=== PATIENT | female | born 1935 | race Caucasian/White ===

== ENCOUNTER 2016-11-02 13:39 | Emergency (ER) | payer MEDICARE, MEDICAID ==
--- NOTE | 2016-11-02 15:10 | ER Document Report ---
ED Respiratory Problem - General Chief Complaint: Congestion Stated Complaint: COUGH Time Seen by Provider: 11/02/16 13:43 Information source: Patient, Relative Notes: Patient is an 80-year-old female with past medical history as recorded with baseline dementia, nonambulatory at baseline, who presents today with 2-3 days of nasal congestion, coughing, and according to staff "losing her voice". I called and spoke directly to the patient's provider, Sonia at the facility, who states the patient has had no fevers, vomiting, diarrhea, change in mental status, or complaints of chest pain. Family was concerned that there was a report that the patient may have had some chest pain with the cough. TRAVEL OUTSIDE OF THE [place] IN LAST 30 DAYS: No - HPI Patient complains to provider of: Cough Onset: Other - See above Duration: Continuous Initiating Event: Other - See above Quality of pain: No pain - According to nursing care staff Severity: Mild Pain Level: Denies Short of Breath: Mild Cough: Productive - Phlegm that is white Sputum amount: Small Sputum color: White Associated symptoms: Other - See above - Related Data Allergies/Adverse Reactions: No Known Allergies Allergy (Verified 04/21/16 13:19) Past Medical History - General Information source: Patient - Social History Smoking Status: Unknown if Ever Smoked Cigarette use (# per day): No Chew tobacco use (# tins/day): No Smoking Education Provided: No Frequency of alcohol use: None Drug Abuse: None Family History: Reviewed & Not Pertinent Patient has suicidal ideation: No Patient has homicidal ideation: No - Past Medical History Cardiac Medical History: Reports: Hx Hypertension Musculoskeltal Medical History: Reports Hx Arthritis, Reports Hx Musculoskeletal Trauma - Fx L. HIP, ORIF Psychiatric Medical History: Reports: Hx Dementia Past Surgical History: Reports: Hx Cholecystectomy, Hx Hysterectomy, Hx Orthopedic Surgery - Immunizations Immunizations up to date: Yes Hx Diphtheria, Pertussis, Tetanus Vaccination: - Unknown Review of Systems - Review of Systems Constitutional: denies: Fever EENT: Nose congestion, Nose discharge. denies: Eye discharge Cardiovascular: denies: Chest pain Respiratory: Cough, Short of breath Gastrointestinal: denies: Diarrhea, Nausea, Vomiting Musculoskeletal: denies: Leg swelling Skin: Other - no hives. denies: Rash Neurological/Psychological: Other - no slurred speech -: Yes All other systems reviewed and negative Physical Exam - Vital signs Vitals: Temp Pulse Resp BP Pulse Ox 97.3 F 78 24 H 140/92 H 96 11/02/16 13:50 11/02/16 13:50 11/02/16 13:50 11/02/16 13:50 11/02/16 13:50 Interpretation: Normal Notes: Reviewed vital signs and nursing note as charted by RN. CONSTITUTIONAL: Alert and and polite. Disoriented to person place and time which is baseline. HEAD: Normocephalic; atraumatic EYES: PERRL ENT: Normal nose; no rhinorrhea; moist mucous membranes; pharynx without lesions noted NECK: Supple without meningismus; no carotid bruits; non-tender; no cervical lymphadenopathy, no masses CARD: Regular rate and rhythm; no murmurs, no clicks, no rubs, no gallops; symmetric distal pulses RESP: Normal chest excursion without splinting or tachypnea; breath sounds clear and equal bilaterally; minimal scattered rhonchi without wheezing or rales present. ABD/GI: Normal bowel sounds; non-distended; soft, non-tender BACK: The back appears normal and is non-tender to palpation EXT: Left BKA. Right leg has MARK hose in place with no obvious edema. SKIN: Normal color for age and race; warm; dry; good turgor; capillary refill < 2 seconds; no acute lesions noted NEURO: Moves all extremities equally; Motor and sensory function intact PSYCH: The patient's mood and manner are appropriate. Grooming and personal hygiene are appropriate. Course - Re-evaluation Re-evalutation: 11/02/16 15:10 Given the history and physical examination with the report from the care facility, I we'll obtain an x-ray of the chest to evaluate for possible pneumonia. I will also order one set of cardiac enzymes and an EKG to rule out any obvious acute cardiac condition. If this workup is unremarkable, patient will be discharged back to the facility with strict return precautions. 11/02/16 15:28 EKG shows a heart of 77, normal sinus rhythm, normal axis, no obvious ST elevation or depression. 11/02/16 16:10 Labs as recorded. No change in exam. Chest x-ray shows normal heart, normal mediastinum, no fractures, normal lung sim, no pneumothorax. Given the above history, physical, laboratory values, an x-ray examination, I believe it is reasonable to discharge the patient home with strict return precautions. - Vital Signs Vital signs: Temp Pulse Resp BP Pulse Ox 97.3 F 78 24 H 140/92 H 96 11/02/16 13:50 11/02/16 13:50 11/02/16 13:50 11/02/16 13:50 11/02/16 13:50 - Laboratory Result Diagrams: 11/02/16 15:15 11/02/16 15:15 Laboratory results interpreted by me: 11/02/16 11/02/16 11/02/16 15:15 15:15 15:15 RBC 3.39 L Hgb 10.7 L Hct 32.3 L RDW 15.1 H Carbon Dioxide 32 H BUN 22 H Est GFR (Non-Af Amer) 54 L NT-Pro-B Natriuret Pep 471 H Discharge - Discharge Clinical Impression: Nasal congestion, Cough Condition: Good Disposition: HOME, SELF-CARE Additional Instructions: Come back immediately with any worsening cough, any fever, chest pain, leg swelling, or any other acute problems. Please make sure that she gets reevaluated by primary doctor in the next 48 hours. Referrals: MARTÍN MICHEL MD [Primary Care Provider] - Follow up as needed
[2016-11-02 15:30] LABS: ABSOLUTE BASOPHILS # (AUTO) 0.1 10^3/uL (0.0-0.2); ABSOLUTE EOSINOPHILS # (AUTO) 0.3 10^3/uL (0.0-0.6); ABSOLUTE LYMPHOCYTES (AUTO) 3.4 10^3/uL (0.5-4.7); ABSOLUTE MONOCYTES (AUTO) 0.6 10^3/uL (0.1-1.4); ABSOLUTE NEUT (AUTO) 5.3 10^3/uL (1.7-8.2); BASOPHILS % (AUTO) 0.9 % (0-2); EOSINOPHILS % (AUTO) 3.5 % (0-6); HEMATOCRIT 32.3 % (36.0-47.0); HEMOGLOBIN 10.7 g/dL (12.0-15.5); HGB HCT DIFFERENCE -0.2; LYMPHOCYTES % (AUTO) 35.1 % (13-45); MEAN CORPUSCULAR HEMOGLOBIN 31.6 pg (27.0-33.4); MEAN CORPUSCULAR HGB CONC 33.2 g/dL (32.0-36.0); MEAN CORPUSCULAR VOLUME 95 fl (80-97); MONOCYTES % (AUTO) 6.5 % (3-13); RED BLOOD COUNT 3.39 10^6/uL (3.72-5.28); RED CELL DISTRIBUTION WIDTH 15.1 % (11.5-14.0); WHITE BLOOD COUNT 9.7 10^3/uL (4.0-10.5)
[2016-11-02 15:49] LABS: ANION GAP 8 (5-19); BLOOD UREA NITROGEN 22 mg/dL (7-20); CALCIUM 9.4 mg/dL (8.4-10.2); CARBON DIOXIDE 32 mmol/L (22-30); CHLORIDE 102 mmol/L (98-107); CREATININE RESULT 0.99 mg/dL (0.52-1.25); GLUCOSE 104 mg/dL (75-110); POTASSIUM 4.7 mmol/L (3.6-5.0); SODIUM 142.3 mmol/L (137-145)
[2016-11-02 16:03] LABS: TROPONIN I < 0.012 ng/mL
[2016-11-02 16:42] VITALS: BP 155/100
--- NOTE | 2016-11-02 23:37 | EKG REPORT ---
SEVERITY:- BORDERLINE ECG - SINUS RHYTHM BORDERLINE PROLONGED QT INTERVAL : Confirmed by: Cyndi Leach 02-Nov-2016 23:37:06
== END 2016-11-02 16:41 | disposition home or self-care (01) ==
LOC: ER 13:39
DX: R05 Cough (principal); R09.81 Nasal congestion; I10 Essential (primary) hypertension; F03.90 Unspecified dementia, unspecified severity, without behavioral disturbance, psychotic disturbance, mood disturbance, and anxiety
CPT/HCPCS: 36415; 71020; 80048; 83880; 84484; 85025; 93005; 93010; 99284

== ENCOUNTER 2017-05-07 09:16 | Emergency (ER) | payer MEDICARE, MEDICAID ==
--- NOTE | 2017-05-07 09:23 | ER Document Report ---
ED General - General Stated Complaint: FALL HEAD PAIN Time Seen by Provider: 05/07/17 09:18 Mode of Arrival: Medic Information source: Patient, Emergency Med Personnel Cannot obtain history due to: Dementia Notes: 81-year-old female history of dementia presents for evaluation after a fall that occurred yesterday at 3 PM. Patient has no complaints, care staff had no specific concerns. Patient was not brought in yesterday for unknown reason. TRAVEL OUTSIDE OF THE [place] IN LAST 30 DAYS: No - HPI Onset: Yesterday Onset/Duration: Sudden Quality of pain: No pain Severity: None Pain Level: Denies Associated symptoms: None Exacerbated by: Denies Relieved by: Denies Similar symptoms previously: Yes Recently seen / treated by doctor: Yes - Related Data Allergies/Adverse Reactions: No Known Allergies Allergy (Verified 04/21/16 13:19) Past Medical History - Social History Smoking Status: Never Smoker Cigarette use (# per day): No Chew tobacco use (# tins/day): No Smoking Education Provided: No Family History: Reviewed & Not Pertinent - Past Medical History Cardiac Medical History: Reports: Hx Hypertension Musculoskeltal Medical History: Reports Hx Arthritis, Reports Hx Musculoskeletal Trauma - Fx L. HIP, ORIF Psychiatric Medical History: Reports: Hx Dementia Past Surgical History: Reports: Hx Cholecystectomy, Hx Hysterectomy, Hx Orthopedic Surgery - Immunizations Immunizations up to date: Yes Hx Diphtheria, Pertussis, Tetanus Vaccination: - Unknown Review of Systems - Review of Systems Notes: PHYSICAL EXAMINATION: GENERAL: Elderly female no acute distress HEAD: Atraumatic, normocephalic. EYES: Pupils equal round and reactive to light, extraocular movements intact, conjunctiva are normal. ENT: Nares patent, oropharynx clear without exudates. Moist mucous membranes. NECK: Normal range of motion, supple without lymphadenopathy LUNGS: Breath sounds clear to auscultation bilaterally and equal. No wheezes rales or rhonchi. HEART: Regular rate and rhythm without murmurs ABDOMEN: Soft, nontender, nondistended abdomen. No guarding, no rebound. No masses appreciated. Female : deferred Musculoskeletal: Normal range of motion, no pitting or edema. No cyanosis. NEUROLOGICAL: Baseline dementia PSYCH: Normal mood, normal affect. SKIN: Warm, Dry, normal turgor, no rashes or lesions noted. -: Yes ROS unobtainable due to patient's medical condition Course - Re-evaluation Re-evalutation: 05/07/17 09:26 On physical examination patient is in no distress at all she is at her baseline mentation. Patient was fully evaluated with nursing staff and no specific abnormalities noted, patient looks well is in no distress, I do not believe imaging is appropriate at this time as she has no abnormality no weakness is moving her extremities with no difficulty and there is no specific documentation of any injury noted by the care facility After performing a Medical Screening Examination, I estimate there is LOW risk for INTRACRANIAL HEMORRHAGE, UNSTABLE SPINE FRACTURE, CENTRAL CORD SYNDROME, CAUDA EQUINA, THORACIC AORTIC DISSECTION, PNEUMOTHORAX, PERFORATED BOWEL, RUPTURED ABDOMINAL AORTIC ANEURYSM, ACUTE TENDON RUPTURE, COMPARTMENT SYNDROME, or OPEN FRACTURE, thus I consider the discharge disposition reasonable. Also, there is no evidence or peritonitis, sepsis, or toxicity. I have reevaluated this patient multiple times and no significant life threatening changes are noted. The EMS staff and I have discussed the diagnosis and risks, and we agree with discharging home to follow-up with their primary doctor with the understanding that symptoms and presentations can change. We also discussed returning to the Emergency Department immediately if new or worsening symptoms occur. We have discussed the symptoms which are most concerning (e.g., bloody stool, fever, changing or worsening pain, vomiting) that necessitate immediate return. Discharge - Discharge Clinical Impression: Fall Qualifiers: Encounter type: initial encounter Qualified Code(s): W19.XXXA - Unspecified fall, initial encounter Dementia Qualifiers: Dementia type: unspecified type Dementia behavioral disturbance: without behavioral disturbance Qualified Code(s): F03.90 - Unspecified dementia without behavioral disturbance Condition: Stable Disposition: HOME, SELF-CARE Additional Instructions: Your examination today noted no acute abnormality return immediately if there are any other concerns
[2017-05-07] MEDS ORDERED: LORAZEPAM 1 MG TABLET PO ONE (09:31)
[2017-05-07 10:32] VITALS: BP 112/72
== END 2017-05-07 10:28 | disposition home or self-care (01) ==
LOC: ER 09:16
DX: Z04.3 Encounter for examination and observation following other accident (principal); W19.XXXA Unspecified fall, initial encounter; F03.90 Unspecified dementia, unspecified severity, without behavioral disturbance, psychotic disturbance, mood disturbance, and anxiety; I10 Essential (primary) hypertension
CPT/HCPCS: 99283; A9270

== ENCOUNTER 2017-05-13 05:12 | Inpatient (IN) | payer MEDICARE, MEDICAID ==
--- NOTE | 2017-05-13 05:27 | ER Document Report ---
ED Medical Screen (RME) - General Stated Complaint: RESPIRATORY DISTRESS Time Seen by Provider: 05/13/17 05:17 Notes: Patient is an 81-year-old female that comes by EMS from the [facility] for chief complaint of fever and congested cough. EMS reports recorded temperature of 102 F [facility] staff earlier today. EMS reports she was initially hypoxic at 86% on room air lying flat, she was given a DuoNeb and Solu-Medrol en route. No smoking history, no COPD history, no cardiac history reported. Only medical history reported as Alzheimer's and hypothyroidism. Patient has DO NOT RESUSCITATE advanced directives paperwork with her tonight. TRAVEL OUTSIDE OF THE [place] IN LAST 30 DAYS: No - Related Data Allergies/Adverse Reactions: No Known Allergies Allergy (Verified 04/21/16 13:19) Past Medical History - Past Medical History Cardiac Medical History: Reports: Hx Hypertension Renal/ Medical History: Denies: Hx Peritoneal Dialysis Musculoskeltal Medical History: Reports Hx Arthritis, Reports Hx Musculoskeletal Trauma - Fx L. HIP, ORIF Psychiatric Medical History: Reports: Hx Dementia Past Surgical History: Reports: Hx Cholecystectomy, Hx Hysterectomy, Hx Orthopedic Surgery - Immunizations Immunizations up to date: Yes Hx Diphtheria, Pertussis, Tetanus Vaccination: - Unknown Physical Exam - General General appearance: Appears well In distress: None - Respiratory Respiratory status: No: Labored Breath sounds: Other - Scattered rhonchi and coarse breath sounds - Skin Skin Color: Flushed Course - Re-evaluation Re-evalutation: Patient flushed, feels very warm, has rhonchi on exam, she is not hypoxic on room air, she has a congested cough. Workup pending.
--- NOTE | 2017-05-13 05:51 | RADIOLOGY REPORT (SQ) ---
EXAM DESCRIPTION: CHEST SINGLE VIEW CLINICAL HISTORY: fever, cough COMPARISON: 11/02/2016 FINDINGS: Single frontal view of the chest. The cardiomediastinal silhouette has normal size and contour. Patchy left basilar airspace opacity. Bilateral perihilar interstitial opacities are unchanged and may be related to pulmonary vascular congestion or chronic interstitial changes. Plate and screw fixation of the left humerus. Peripheral right shoulder arthroplasty. Upper abdominal soft tissues are unremarkable. IMPRESSION: 1. Left basilar airspace opacity concerning for pneumonia. Continued follow-up recommended.
[2017-05-13 06:02] LABS: ABSOLUTE BASOPHILS # (AUTO) 0.1 10^3/uL (0.0-0.2); ABSOLUTE EOSINOPHILS # (AUTO) 0.1 10^3/uL (0.0-0.6); ABSOLUTE LYMPHOCYTES (AUTO) 3.7 10^3/uL (0.5-4.7); ABSOLUTE NEUT (AUTO) 4.6 10^3/uL (1.7-8.2); BASOPHILS % (AUTO) 0.6 % (0-2); EOSINOPHILS % (AUTO) 1.1 % (0-6); HEMATOCRIT 26.9 % (36.0-47.0); HEMOGLOBIN 9.1 g/dL (12.0-15.5); HGB HCT DIFFERENCE 0.4; LYMPHOCYTES % (AUTO) 39.1 % (13-45); MEAN CORPUSCULAR HEMOGLOBIN 30.4 pg (27.0-33.4); MEAN CORPUSCULAR HGB CONC 33.8 g/dL (32.0-36.0); MEAN CORPUSCULAR VOLUME 90 fl (80-97); MONOCYTES % (AUTO) 10.7 % (3-13); RED BLOOD COUNT 2.98 10^6/uL (3.72-5.28); RED CELL DISTRIBUTION WIDTH 15.8 % (11.5-14.0); SEGMENTED NEUTROPHILS % (AUTO) 48.5 % (42-78); WHITE BLOOD COUNT 9.5 10^3/uL (4.0-10.5)
[2017-05-13 06:03] LABS: PROTHROMBIN TIME 13.6 SEC (11.4-15.4)
[2017-05-13 06:15] LABS: VENOUS BLOOD BASE EXCESS 5.5 mmol/L; VENOUS BLOOD PCO2 43.7 mmHg (35-63); VENOUS BLOOD PH 7.45 (7.30-7.42)
[2017-05-13] MEDS ORDERED: LEVOFLOXACIN 500 MG/D5W RTU 500 MG/100 ML RTUPB IV ONE (06:17)
[2017-05-13] MEDS ORDERED: IPRATROPIUM/ALBUTEROL 0.5-2.5 MG/3 ML AMPUL NEB ONE (06:25)
[2017-05-13] MEDS ORDERED: NORMAL SALINE 1000 ML 1,000 ML IV PRN (06:25)
[2017-05-13 06:47] LABS: ALANINE AMINOTRANSFERASE 37 U/L (9-52); ALBUMIN 3.5 g/dL (3.5-5.0); ALKALINE PHOSPHATASE 83 U/L (38-126); ANION GAP 11 (5-19); ASPARTATE AMINO TRANSFERASE 40 U/L (14-36); BILIRUBIN,DIRECT 0.4 mg/dL (0.0-0.4); BILIRUBIN,TOTAL 0.6 mg/dL (0.2-1.3); BLOOD UREA NITROGEN 24 mg/dL (7-20); CALCIUM 8.9 mg/dL (8.4-10.2); CARBON DIOXIDE 30 mmol/L (22-30); CHLORIDE 103 mmol/L (98-107); CREATININE RESULT 0.99 mg/dL (0.52-1.25); GLUCOSE 100 mg/dL (75-110); POTASSIUM 4.4 mmol/L (3.6-5.0); SODIUM 143.5 mmol/L (137-145); TOTAL PROTEIN 6.8 g/dL (6.3-8.2)
--- NOTE | 2017-05-13 07:02 | ER Document Report ---
ED General - General Chief Complaint: Breathing Difficulty Stated Complaint: RESPIRATORY DISTRESS Time Seen by Provider: 05/13/17 05:17 TRAVEL OUTSIDE OF THE [place] IN LAST 30 DAYS: No - HPI Patient complains to provider of: Respiratory distress Notes: Patient coming in for evaluation of respiratory distress. Patient has a history of dementia is coming in from a local detention facility. Patient is a DNR. Most of the HPI is obtained from family member at bedside. Patient with a cough for last 2 days fever of 102 at the detention facility was given Tylenol patient also found to be hypoxic with SPO2 of 86. Patient was given Solu-Medrol pain A. Upon my evaluation patient on nasal cannula 2 L of oxygen. Patient is sleeping with now an SPO2 of 88. Member denies any recent antibiotics denies any admissions to the hospital. Patient does not have a smoking history. Otherwise patient is easily arousable confused baseline per the family. - Related Data Allergies/Adverse Reactions: No Known Allergies Allergy (Verified 04/21/16 13:19) Home Medications: Current Home Medications Cholecalciferol (Vitamin D3) [Vitamin D3 2000 unit Tablet] 2,000 unit PO DAILY 05/13/17 [History] Ketotifen Fumarate [Zaditor] 1 drop OU DAILY 05/13/17 [History] Levothyroxine Sodium [Synthroid] 75 mcg PO Q6AM 05/13/17 [History] Memantine HCl [Namenda 10 mg Tablet] 10 mg PO Q12 05/13/17 [History] Metoprolol Tartrate [Lopressor 25 mg Tablet] 12.5 mg PO Q12 05/13/17 [History] Mirtazapine [Remeron] 30 mg PO DAILY 05/13/17 [History] Montelukast Sodium [Singulair 10 mg Tablet] 10 mg PO DAILY 05/13/17 [History] Mupirocin 1 applic TOP DAILY 05/13/17 [History] Quetiapine Fumarate [Seroquel 25 mg Tablet] 25 mg PO DAILY@1400 05/13/17 [ History] Quetiapine Fumarate [Seroquel 25 mg Tablet] 25 mg PO DAILY@2200 05/13/17 [ History] Rivastigmine [Exelon 9.5 Mg/24 Hr Transdermal Patch] 1 each TD DAILY 05/13/17 [ History] Past Medical History - Social History Smoking Status: Unknown if Ever Smoked Family History: Reviewed & Not Pertinent Patient has suicidal ideation: No Patient has homicidal ideation: No - Past Medical History Cardiac Medical History: Reports: Hx Hypertension Renal/ Medical History: Denies: Hx Peritoneal Dialysis Musculoskeltal Medical History: Reports Hx Arthritis, Reports Hx Musculoskeletal Trauma - Fx L. HIP, ORIF Psychiatric Medical History: Reports: Hx Dementia Past Surgical History: Reports: Hx Cholecystectomy, Hx Hysterectomy, Hx Orthopedic Surgery - Immunizations Immunizations up to date: Yes Hx Diphtheria, Pertussis, Tetanus Vaccination: - Unknown Review of Systems - Review of Systems Notes: Unable to perform due to dementia -: Yes ROS unobtainable due to patient's medical condition Physical Exam - Vital signs Vitals: Pulse Ox 98 05/13/17 05:17 Interpretation: Normal - General General appearance: Appears well, Alert - HEENT Head: Normocephalic, Atraumatic Eyes: Normal Pupils: PERRL - Respiratory Respiratory status: No respiratory distress Chest status: Nontender Breath sounds: Rhonchi, Wheezing Chest palpation: Normal - Cardiovascular Rhythm: Regular Heart sounds: Normal auscultation Murmur: No - Abdominal Inspection: Normal Distension: No distension Bowel sounds: Normal Tenderness: Nontender Organomegaly: No organomegaly - Back Back: Normal, Nontender - Extremities General upper extremity: Normal inspection, Nontender, Normal color, Normal ROM , Normal temperature General lower extremity: Normal inspection, Nontender, Normal color, Normal ROM , Normal temperature, Normal weight bearing. No: Stacey's sign - Neurological Neuro grossly intact: Yes Cognition: Confused Marcus Coma Scale Eye Opening: Spontaneous [place] Coma Scale Verbal: Confused Marcus Coma Scale Motor: Obeys Commands Marcus Coma Scale Total: 14 Speech: Normal - Psychological Associated symptoms: Other - Dementia - Skin Skin Temperature: Warm Skin Moisture: Dry Skin Color: Normal Course - Re-evaluation Re-evalutation: 05/13/17 07:01 Chest x-ray shows signs of pneumonia. Patient's blood pressure is low concern for underlying sepsis. Patient will be started on antibiotics IV fluids given. Will discuss with PCP for admission once all laboratory studies are returned. - Vital Signs Vital signs: Temp Pulse Resp BP Pulse Ox 98.1 F 92 22 H 129/76 H 93 05/13/17 11:57 05/13/17 11:57 05/13/17 11:57 05/13/17 11:57 05/13/17 11:57 - Laboratory Result Diagrams: 05/13/17 05:35 05/13/17 05:35 Laboratory results interpreted by me: 05/13/17 05/13/17 05/13/17 05:35 05:35 05:35 RBC 2.98 L Hgb 9.1 L Hct 26.9 L RDW 15.8 H VBG pH 7.45 H BUN 24 H Est GFR (Non-Af Amer) 54 L AST 40 H Critical Care Note - Critical Care Note Total time excluding time spent on procedures (mins): 35 Comments: Multiple evaluations for patient with hypoxia possible underlying sepsis. Discharge - Discharge Clinical Impression: DNR (do not resuscitate) Fever Qualifiers: Fever type: unspecified Qualified Code(s): R50.9 - Fever, unspecified Hypotension Qualifiers: Hypotension type: unspecified hypotension type Qualified Code(s): I95.9 - Hypotension, unspecified Pneumonia Qualifiers: Pneumonia type: due to unspecified organism Laterality: left Lung location: lower lobe of lung Qualified Code(s): J18.1 - Lobar pneumonia, unspecified organism Condition: Fair Disposition: ADMITTED INPATIENT Admitting Provider: [facility] Unit Admitted: Medical Floor
[2017-05-13] MEDS ORDERED: CEFEPIME 1 GM/D5W RTU 1 GM/50 ML RTUPB IV ONE ×2 (08:14→08:48)
--- NOTE | 2017-05-13 08:42 | ER Document Report ---
Sepsis - Sepsis Documentation Sepsis Patient: Yes - Vital Signs Vitals: Temp Pulse Resp BP Pulse Ox 100.2 F 22 H 100/44 L 93 05/13/17 06:13 05/13/17 07:01 05/13/17 07:01 05/13/17 07:01 - Cardiovascular Peripheral Pulse Strength: Normal Capillary refill: < 3 seconds Rhythm: Regular Heart Sounds: Normal auscultation - Respiratory Breath Sounds: Rhonchi Respiratory Status: No respiratory distress - Skin Skin Color: Normal
--- NOTE | 2017-05-13 14:56 | PDOC H&P ---
History of Present Illness Admission Date/PCP: 05/13/17 08:32 ZI MART Patient complains of: Difficulty with breathing History of Present Illness: DEDE UGALDE is a 81 year old female known to my practice, resident at the [facility] who was brought to the ED by EMS due to difficulty with breathing and reported persistent hypoxemia. There was associated coughing and fever with reported temperature of 102F in the preceding 2 days. No reported vomiting or recent swallowing problem. No reported observed abdominal pain or diarrhea. Her initial evaluation in the ED was remarkable for confirmed hypoxemia, left lower lobe airspace disease process, and baseline dementia. Her morbidities include Dementia Alzheimer's type, Hypertension, chronic Angina, Hypothyroidism, Depression with anxiety, and osteoarthritis. Patient's daughter and [facility] staff contribute to preceding narrative. Past Medical History Cardiac Medical History: Reports: Hypertension Musculoskeltal Medical History: Reports: Arthritis Psychiatric Medical History: Reports: Dementia Past Surgical History Past Surgical History: Reports: Cholecystectomy, Hysterectomy, Orthopedic Surgery Social History Smoking Status: Unknown if Ever Smoked Frequency of Alcohol Use: None Hx Recreational Drug Use: No Drugs: None Hx Prescription Drug Abuse: No - Advance Directive Resuscitation Status: Do Not Resuscitate Family History Family History: Reviewed & Not Pertinent Parental Family History Reviewed: Yes Children Family History Reviewed: Yes Sibling(s) Family History Reviewed.: Yes Medication/Allergy Home Medications: Cholecalciferol (Vitamin D3) [Vitamin D3 2000 unit Tablet] 2,000 unit PO DAILY 05/13/17 Ketotifen Fumarate [Zaditor] 1 drop OU DAILY 05/13/17 Levothyroxine Sodium [Synthroid] 75 mcg PO Q6AM 05/13/17 Memantine HCl [Namenda 10 mg Tablet] 10 mg PO Q12 05/13/17 Metoprolol Tartrate [Lopressor 25 mg Tablet] 12.5 mg PO Q12 05/13/17 Mirtazapine [Remeron] 30 mg PO DAILY 05/13/17 Montelukast Sodium [Singulair 10 mg Tablet] 10 mg PO DAILY 05/13/17 Mupirocin 1 applic TOP DAILY 05/13/17 Quetiapine Fumarate [Seroquel 25 mg Tablet] 25 mg PO DAILY@1400 05/13/17 Quetiapine Fumarate [Seroquel 25 mg Tablet] 25 mg PO DAILY@2200 05/13/17 Rivastigmine [Exelon 9.5 Mg/24 Hr Transdermal Patch] 1 each TD DAILY 05/13/17 Allergies/Adverse Reactions: No Known Allergies Allergy (Verified 04/21/16 13:19) Review of Systems ROS unobtainable: Due to mental status Physical Exam Vital Signs: Temp Pulse Resp BP Pulse Ox 98.1 F 92 22 H 129/76 H 93 05/13/17 11:57 05/13/17 11:57 05/13/17 11:57 05/13/17 11:57 05/13/17 11:57 Intake & Output 05/12/17 05/13/17 05/14/17 06:59 06:59 06:59 Weight 78.2 kg General appearance: PRESENT: cooperative Head exam: PRESENT: atraumatic, normocephalic Eye exam: PRESENT: conjunctiva pink, EOMI, PERRLA. ABSENT: scleral icterus Respiratory exam: PRESENT: decreased breath sounds - at lung bases Cardiovascular exam: PRESENT: RRR. ABSENT: diastolic murmur, rubs, systolic murmur Vascular exam: PRESENT: normal capillary refill. ABSENT: pallor GI/Abdominal exam: PRESENT: normal bowel sounds, soft. ABSENT: distended, guarding, mass, organolmegaly, rebound, tenderness Extremities exam: ABSENT: pedal edema Musculoskeletal exam: PRESENT: deformity - related to multiple joints involvement with arthritis. Neurological exam: PRESENT: alert - but based line comfusion due to dementia., awake Psychiatric exam: PRESENT: agitated, anxious Skin exam: PRESENT: dry, intact, warm. ABSENT: cyanosis, rash Results Laboratory Results: I reviewed patient's laboratory result on [employer] and form a significant part of my decision making. Impressions: Chest X-Ray 05/13/17 05:24 IMPRESSION: 1. Left basilar airspace opacity concerning for pneumonia. Continued follow-up recommended. Assessment & Plan - Diagnosis (1) Left lower lobe pneumonia Qualifiers: Aspiration pneumonia type: unspecified Is this a current diagnosis for this admission?: Yes Plan: See admitting physician orders. (2) Acute hypoxemic respiratory failure Is this a current diagnosis for this admission?: Yes Plan: See admitting physician orders. (3) Hypertension Qualifiers: Hypertension type: essential hypertension Qualified Code(s): I10 - Essential (primary) hypertension Is this a current diagnosis for this admission?: Yes Plan: See admitting physician orders. (4) Hypothyroidism Qualifiers: Hypothyroidism type: unspecified Qualified Code(s): E03.9 - Hypothyroidism , unspecified Is this a current diagnosis for this admission?: Yes Plan: See admitting physician orders. (5) Mixed anxiety and depressive disorder Is this a current diagnosis for this admission?: Yes Plan: See admitting physician orders. (6) Chronic stable angina Is this a current diagnosis for this admission?: Yes Plan: See admitting physician orders. (7) Osteoarthritis involving multiple joints on both sides of body Is this a current diagnosis for this admission?: Yes Plan: See admitting physician orders. - Time Time Spent: 50 to 70 Minutes Medications reviewed and adjusted accordingly: Yes Anticipated discharge: SNF Within: Other - Inpatient Certification Based on my medical assessment, after consideration of the patient's comorbidities, presenting symptoms, or acuity I expect that the services needed warrant INPATIENT care.: Yes I certify that my determination is in accordance with my understanding of Medicare's requirements for reasonable and necessary INPATIENT services [42 CFR 412.3e].: Yes Medical Necessity: Need Close Monitoring Due to Risk of Patient Decompensation, Need For IV Fluids, Need for IV Antibiotics Post Hospital Care: D/C [employer] Documentation - Plan Summary Plan Summary: See admitting physician orders.
--- NOTE | 2017-05-13 15:46 | EKG REPORT ---
SEVERITY:- ABNORMAL ECG - SINUS RHYTHM PROBABLE LVH WITH SECONDARY REPOL ABNRM ANTERIOR Q WAVES, POSSIBLY DUE TO LVH : Confirmed by: Cyndi Leach 13-May-2017 15:45:40
[2017-05-13] MEDS: NORMAL SALINE 1000 ML 1,000 ML IV PRN (17:27)
[2017-05-13] MEDS ORDERED: QUETIAPINE FUMARATE 25 MG TABLET PO SCH (22:00)
[2017-05-13] MEDS: CEFEPIME 1 GM/D5W RTU 1 GM/50 ML RTUPB IV SCH (23:13)
[2017-05-13] MEDS: MEMANTINE HCL 10 MG TABLET PO SCH (23:43)
[2017-05-13] MEDS: METOPROLOL TARTRATE 25 MG TABLET PO SCH (23:43)
[2017-05-14] MEDS: NORMAL SALINE 1000 ML 1,000 ML IV PRN (00:46)
[2017-05-14 04:23] LABS: ABSOLUTE LYMPHOCYTES (AUTO) 2.7 10^3/uL (0.5-4.7); ABSOLUTE MONOCYTES (AUTO) 0.7 10^3/uL (0.1-1.4); ABSOLUTE NEUT (AUTO) 2.8 10^3/uL (1.7-8.2); BASOPHILS % (AUTO) 0.4 % (0-2); EOSINOPHILS % (AUTO) 0.3 % (0-6); HEMATOCRIT 25.3 % (36.0-47.0); HEMOGLOBIN 8.5 g/dL (12.0-15.5); HGB HCT DIFFERENCE 0.2; LYMPHOCYTES % (AUTO) 42.5 % (13-45); MEAN CORPUSCULAR HEMOGLOBIN 30.7 pg (27.0-33.4); MEAN CORPUSCULAR HGB CONC 33.7 g/dL (32.0-36.0); MEAN CORPUSCULAR VOLUME 91 fl (80-97); MONOCYTES % (AUTO) 11.3 % (3-13); RED BLOOD COUNT 2.78 10^6/uL (3.72-5.28); RED CELL DISTRIBUTION WIDTH 15.5 % (11.5-14.0); SEGMENTED NEUTROPHILS % (AUTO) 45.5 % (42-78); WHITE BLOOD COUNT 6.3 10^3/uL (4.0-10.5)
[2017-05-14 04:36] LABS: ALANINE AMINOTRANSFERASE 33 U/L (9-52); ALKALINE PHOSPHATASE 62 U/L (38-126); ANION GAP 10 (5-19); ASPARTATE AMINO TRANSFERASE 31 U/L (14-36); BILIRUBIN,DIRECT 0.3 mg/dL (0.0-0.4); BILIRUBIN,TOTAL 0.4 mg/dL (0.2-1.3); BLOOD UREA NITROGEN 21 mg/dL (7-20); CALCIUM 8.5 mg/dL (8.4-10.2); CARBON DIOXIDE 26 mmol/L (22-30); CHLORIDE 109 mmol/L (98-107); CREATININE RESULT 0.95 mg/dL (0.52-1.25); GLUCOSE 82 mg/dL (75-110); POTASSIUM 3.9 mmol/L (3.6-5.0); SODIUM 144.7 mmol/L (137-145); TOTAL PROTEIN 5.9 g/dL (6.3-8.2)
[2017-05-14] MEDS ORDERED: LEVOTHYROXINE SODIUM 0.075 MG TABLET PO SCH (06:00)
[2017-05-14] MEDS ORDERED: RIVASTIGMINE 9.5 MG/24 HR PATCH.TD24 TD SCH (10:00)
[2017-05-14] MEDS ORDERED: LEVOFLOXACIN 500 MG/D5W RTU 500 MG/100 ML RTUPB IV SCH (10:00)
[2017-05-14] MEDS ORDERED: KETOTIFEN FUMARATE OU SCH (10:00)
[2017-05-14] MEDS ORDERED: MIRTAZAPINE 15 MG TABLET PO SCH (10:00)
[2017-05-14] MEDS ORDERED: MONTELUKAST SODIUM 10 MG TABLET PO SCH (10:00)
[2017-05-14] MEDS: MEMANTINE HCL 10 MG TABLET PO SCH (10:55)
[2017-05-14] MEDS: CEFEPIME 1 GM/D5W RTU 1 GM/50 ML RTUPB IV SCH (10:55)
[2017-05-14] MEDS: METOPROLOL TARTRATE 25 MG TABLET PO SCH (10:55)
[2017-05-14] MEDS ORDERED: HALOPERIDOL LACTATE INJ 5 MG/1 ML VIAL IV ONE ×2 (11:34→22:00)
[2017-05-14] MEDS: IPRATROPIUM/ALBUTEROL 0.5-2.5 MG/3 ML AMPUL NEB PRN ×2 (11:34→20:26)
--- NOTE | 2017-05-14 11:44 | PDOC PROGRESS REPORT ---
Subjective Progress Note for:: 05/14/17 Subjective:: Agitated all night and refusing medication this AM. Daughter at bedside stated that since about 6pm last night patient has become increasingly agitated, verbally abusive and refusing medication. No reported fever. Episode of low oxygenation on pulse oximetry that improved with supplementation via nasal cannula. No vomiting. Tolerating minimal oral feeding when cooperative. Physical Exam Vital Signs: Temp Pulse Resp BP Pulse Ox 98.4 F 98 20 122/52 L 94 05/14/17 05:00 05/14/17 05:00 05/14/17 05:00 05/14/17 00:00 05/14/17 05:00 Intake & Output 05/13/17 05/14/17 05/15/17 06:59 06:59 06:59 Intake Total 1240 Balance 1240 Weight 78.2 kg General appearance: PRESENT: no acute distress, cooperative Head exam: PRESENT: atraumatic, normocephalic Eye exam: PRESENT: conjunctiva pink, EOMI, PERRLA. ABSENT: scleral icterus Mouth exam: PRESENT: moist - fairly Respiratory exam: PRESENT: crackles - scattered bilaterally, decreased breath sounds - at lung bases Cardiovascular exam: PRESENT: RRR. ABSENT: diastolic murmur, rubs, systolic murmur GI/Abdominal exam: PRESENT: normal bowel sounds, soft. ABSENT: distended, guarding, mass, organolmegaly, rebound, tenderness Extremities exam: ABSENT: pedal edema Musculoskeletal exam: PRESENT: deformity - OA features at multiple joints. Neurological exam: PRESENT: alert, awake Psychiatric exam: PRESENT: agitated, anxious Skin exam: PRESENT: dry, intact, warm. ABSENT: cyanosis, rash Results Laboratory Results: 05/14/17 03:53 05/14/17 03:53 05/14/17 05/14/17 03:53 03:53 WBC 6.3 RBC 2.78 L Hgb 8.5 L Hct 25.3 L MCV 91 MCH 30.7 MCHC 33.7 RDW 15.5 H Plt Count 203 Seg Neutrophils % 45.5 Lymphocytes % 42.5 Monocytes % 11.3 Eosinophils % 0.3 Basophils % 0.4 Absolute Neutrophils 2.8 Absolute Lymphocytes 2.7 Absolute Monocytes 0.7 Absolute Eosinophils 0.0 Absolute Basophils 0.0 Sodium 144.7 Potassium 3.9 Chloride 109 H Carbon Dioxide 26 Anion Gap 10 BUN 21 H Creatinine 0.95 Est GFR ( Amer) > 60 Est GFR (Non-Af Amer) 56 L Glucose 82 Calcium 8.5 Total Bilirubin 0.4 AST 31 ALT 33 Alkaline Phosphatase 62 Total Protein 5.9 L Albumin 3.0 L Impressions: Chest X-Ray 05/13/17 05:24 IMPRESSION: 1. Left basilar airspace opacity concerning for pneumonia. Continued follow-up recommended. Assessment & Plan - Diagnosis (1) Left lower lobe pneumonia Qualifiers: Aspiration pneumonia type: unspecified Is this a current diagnosis for this admission?: Yes (2) Acute hypoxemic respiratory failure Is this a current diagnosis for this admission?: Yes (3) Hypertension Qualifiers: Hypertension type: essential hypertension Qualified Code(s): I10 - Essential (primary) hypertension Is this a current diagnosis for this admission?: Yes (4) Hypothyroidism Qualifiers: Hypothyroidism type: unspecified Qualified Code(s): E03.9 - Hypothyroidism , unspecified Is this a current diagnosis for this admission?: Yes (5) Mixed anxiety and depressive disorder Is this a current diagnosis for this admission?: Yes (6) Chronic stable angina Is this a current diagnosis for this admission?: Yes (7) Osteoarthritis involving multiple joints on both sides of body Is this a current diagnosis for this admission?: Yes (8) Dementia with behavioral disturbance Qualifiers: Dementia type: Alzheimer's disease Alzheimer's disease onset: late-onset Qualified Code(s): G30.1 - Alzheimer's disease with late onset; F02.81 - Dementia in other diseases classified elsewhere with behavioral disturbance; F02.81 - Dementia in other diseases classified elsewhere with behavioral disturbance; F02.81 - Dementia in other diseases classified elsewhere with behavioral disturbance Is this a current diagnosis for this admission?: Yes Plan: See attending physician orders. - Time Time Spent with patient: 35 or more minutes Medications reviewed and adjusted accordingly: Yes Anticipated discharge: SNF Within: Other - Inpatient Certification Based on my medical assessment, after consideration of the patient's comorbidities, presenting symptoms, or acuity I expect that the services needed warrant INPATIENT care.: Yes I certify that my determination is in accordance with my understanding of Medicare's requirements for reasonable and necessary INPATIENT services [42 CFR 412.3e].: Yes Medical Necessity: Need Close Monitoring Due to Risk of Patient Decompensation, Need For IV Fluids, Need For Continuous Telemetry Monitoring, Need for IV Antibiotics, Risk of Complication if Not Cared For in Hospital Post Hospital Care: D/C or Transfer Summary - Plan Summary Plan Summary: Patient will receive a now dose of Haloperidol 0.5mg x 1 dose. Maintain on all other current mediation management. Continue IV Levofloxacin and Csfepime coverage. Follow up on blood culture findings.
[2017-05-14] MEDS ORDERED: QUETIAPINE FUMARATE 25 MG TABLET PO SCH (14:00)
[2017-05-14] MEDS ORDERED: HALOPERIDOL 0.5 MG TABLET PO ONE (19:15)
[2017-05-14 20:40] VITALS: BP 125/98
[2017-05-14] MEDS ORDERED: FUROSEMIDE INJ/PF 20 MG/2 ML SDV ONE (21:39)
[2017-05-14] MEDS ORDERED: ACETAMINOPHEN 650 MG SUPP.RECT PR PRN (21:49)
[2017-05-14] MEDS ORDERED: LORAZEPAM INJ 2 MG/1 ML VIAL ONE (21:58)
[2017-05-14] MEDS ORDERED: FUROSEMIDE INJ/PF 20 MG/2 ML SDV IV ONE (22:00)
[2017-05-14] MEDS ORDERED: SCOPOLAMINE HYDROBROMIDE 1.5 MG PATCH.TD72 ONE (22:20)
[2017-05-14] MEDS ORDERED: LORAZEPAM INJ 2 MG/1 ML VIAL IV PRN (22:48)
[2017-05-14] MEDS ORDERED: LORAZEPAM INJ 2 MG/1 ML VIAL IV ONE (23:00)
[2017-05-15] MEDS ORDERED: HALOPERIDOL 0.5 MG TABLET PO SCH (10:00)
--- NOTE | 2017-05-15 10:42 | Death Summary ---
Summary Date : 05/14/17 Time of :: 22:26 Autopsy: No Resuscitation Status: Do Not Resuscitate Primary Care Provider: ZI MART MD - Final Diagnosis (1) Left lower lobe pneumonia Is this a current diagnosis for this admission?: Yes (2) Acute hypoxemic respiratory failure Is this a current diagnosis for this admission?: Yes (3) Hypertension Is this a current diagnosis for this admission?: Yes (4) Hypothyroidism Is this a current diagnosis for this admission?: Yes (5) Mixed anxiety and depressive disorder Is this a current diagnosis for this admission?: Yes (6) Chronic stable angina Is this a current diagnosis for this admission?: Yes (7) Osteoarthritis involving multiple joints on both sides of body Is this a current diagnosis for this admission?: Yes (8) Dementia with behavioral disturbance Is this a current diagnosis for this admission?: Yes Hospital Course:: Patient was admitted for difficulty with breathing and initial evaluation that suggested left lower lobe pneumonia. She was management with IV Cefepime and Levofloxacin. There was associated fever. Patient presenting hypoxemia did improved initially but she developed episodes of agitation and uncooperative with treatment necessitating use of IV Haloperidol for acute agitation management. There was initial improvement in her agitation but about the same time the next day developed similar agitation. There was associated desaturation and noted frothy sputum. Despite all intervention to improve oxygenation status with use of 100 % non re-breathing supplementation, discontinuation of IV fluid and administration of Lasix her condition worsen. She has been on DNR status since admission. Her daughter at bedside eventually requested for only comfort care intervention. She was placed on Ativan for agitation and scopolamine patch to address excessive secretion. She was pronounced at 2226 hour on 05/14/2017. Autopsy was declined.
[2017-05-17] MEDS ORDERED: SCOPOLAMINE HYDROBROMIDE 1.5 MG PATCH.TD72 TD SCH (10:00)
== END 2017-05-14 23:00 | disposition left against medical advice (07) | DRG 193 ==
LOC: ER 05:12 → EH 08:32 → 5 09:24
PROVIDERS: ADMIT Internal Medicine Geriatric Medicine; ATTEND Internal Medicine Geriatric Medicine
DX: J18.1 Lobar pneumonia, unspecified organism (principal); J96.01 Acute respiratory failure with hypoxia; F02.81 Dementia in other diseases classified elsewhere, unspecified severity, with behavioral disturbance; Z66 Do not resuscitate; E03.9 Hypothyroidism, unspecified; I10 Essential (primary) hypertension; F41.8 Other specified anxiety disorders; M19.90 Unspecified osteoarthritis, unspecified site; G30.1 Alzheimer's disease with late onset
CPT/HCPCS: 36415; 71010; 80053; 82803; 83605; 85025; 85610; 87040; 87493; 87804; 93005; 93010; 94640; 96361; 96365; 99291; J0692; J1630; J1940; J1956; J2060; J3490; J7030; J7620